=== PATIENT | female | born 2000 | race Caucasian/White ===

== ENCOUNTER 2020-11-11 08:51 | Outpatient (REF) | payer OTHER, SELFPAY ==
--- NOTE | 2020-11-11 08:57 | US_ITS ---
EXAMINATION: US ABDOMEN COMPLETE CLINICAL INFORMATION: Right upper quadrant pain. COMPARISON: CT abdomen and pelvis 09/03/2019. TECHNIQUE: Real-time imaging of the abdominal viscera. FINDINGS: PANCREAS: Visualized portions unremarkable. ABDOMINAL AORTA: Unremarkable. INFERIOR VENA CAVA: Unremarkable. LIVER: Unremarkable. GALLBLADDER: Mild sludge and possible tiny calculi are seen near the neck without surrounding abnormality. COMMON BILE DUCT: Normal in caliber measuring 0.3 cm in diameter. RIGHT KIDNEY: 10.8 cm. Unremarkable. LEFT KIDNEY: 10.1 cm. Unremarkable. SPLEEN: 8.4 cm. Unremarkable. FREE FLUID: None. US/US abdomen complete IMPRESSION: 1. Mild sludge/tiny calculi. The gallbladder neck without evidence for acute cholecystitis. No other significant abnormality.
== END 2020-11-11 08:52 | disposition home or self-care (01) ==
LOC: HO.HMGCX 08:51
PROVIDERS: Visit Provider Internal Medicine
DX: R10.11 Right upper quadrant pain (principal)
CPT/HCPCS: 76700

== ENCOUNTER → 2020-11-19 11:07 | Outpatient (BNVA) | payer OTHER, SELFPAY | PROVIDERS: PCP Nurse Practitioner Pediatrics; Visit Provider Surgery | DX: Z76.89 Persons encountering health services in other specified circumstances (principal) ==

== ENCOUNTER 2020-12-11 09:07 | Day surgery (SDC) | payer OTHER, SELFPAY ==
[2020-12-04 14:02] VITALS: BMI 23.8
--- NOTE | 2020-12-10 11:43 | HO.ANESPROP2 ---
Documented by User: Keeley Vazquez 12/10/20 11:45 HPI - Anesthesia Eval Consult details Narrative: 20yo F for Cholecystectomy Laparoscopic,poss open Recent rx for strep throat PMFSH Past Medical History Medical History (Updated 12/04/20 @ 13:58 by Nenita Cox) Family history of anesthesia complication Gallstones History of strep sore throat Family History Family History Family/Other History of ovarian cancer Surgical History Surgical History History of wisdom tooth extraction Social History Social History Are you a primary pediatric critical care nurse to a significant other at home: No Do you presently have visiting nurse or other home services: No Alcohol intake: current Smoking Status: Never smoker Have you been hit, kicked, punched, or otherwise hurt by someone within the past year? If so, by whom?: No Advance Directives: No Advance Directives Information Provided: No Advance Directives on File: No Recently lost weight without trying: No Meds Allergies Allergy/AdvReac Type Severity Reaction Status Date / Time No Known Allergies Allergy Verified 12/11/20 09:37 Home Medications Medication Instructions Recorded Confirmed Type desogestrel 0.15 mg-ethinyl 1 tab PO DAILY 11/19/20 12/04/20 History estradiol 0.03 mg tablet dicyclomine 10 mg capsule 10 mg PO TID PRN 11/19/20 12/04/20 History Exam Exam Date and Time: December 10, 2020 1143 Height,Weight and Vital Signs: Height 5 ft 2 in Weight 58.967 kg Assessment and Plan Assessment Anesthesia Assessment: Chart Reviewed Documented by User: Sarika Estrella 12/11/20 13:12 PMFSH Past Medical History Medical History (Updated 12/04/20 @ 13:58 by Nenita Cox) Family history of anesthesia complication Gallstones History of strep sore throat Family History Family History Family/Other History of ovarian cancer Family history of problems with anesthesia: No Surgical History Surgical History History of wisdom tooth extraction History of Problems with Anesthesia: No Social History Social History Are you a primary pediatric critical care nurse to a significant other at home: No Do you presently have visiting nurse or other home services: No Alcohol intake: current Smoking Status: Never smoker Have you been hit, kicked, punched, or otherwise hurt by someone within the past year? If so, by whom?: No Advance Directives: No Advance Directives Information Provided: No Advance Directives on File: No Recently lost weight without trying: No Meds Allergies Allergy/AdvReac Type Severity Reaction Status Date / Time No Known Allergies Allergy Verified 12/11/20 09:37 Home Medications Medication Instructions Recorded Confirmed Type desogestrel 0.15 mg-ethinyl 1 tab PO DAILY 11/19/20 12/04/20 History estradiol 0.03 mg tablet dicyclomine 10 mg capsule 10 mg PO TID PRN 11/19/20 12/04/20 History Exam Height,Weight and Vital Signs: Vital Signs Temp Pulse Resp BP Pulse Ox 12/11/20 09:35 98 F 81 18 91/43 L 98 Pertinent Lab Results Pertinent Lab Results: Lab Results 12/11/20 Range/Units 09:25 Urine Test NEGATIVE (NEGATIVE) Airway Mallampati Class: I TM Dist: >3cm Neck ROM: Full Loose/Missing/Broken Teeth: No Heart: RRR Lungs: CTAB Assessment and Plan Final Anesthetic Review NPO: Yes ASA Class: I Final Preanesthetic Review: No Changes in Pt Med Stat and Consent Obtained/Reviewed Patient Risk: Low Procedure Risk: Low Assessment/Block/Sedation in SS: Assess/Block/Sedation-SS Anesthetic Plan Anesthetic Plan: GA Disposition: Standard PACU
[2020-12-11] VITALS (17 sets, daily range): BP systolic 90–110; BP diastolic 43–69; PULSE 63–90; RESP 16–20; TEMP 36.3–36.6; O2SAT 89–100
[2020-12-11 09:32] LABS: UPreg QC Valid YES; Urine Pregnancy NEGATIVE (NEGATIVE)
[2020-12-11] MEDS: Lactated Ringers 1,000 ML 100 ML IVCONT (09:55)
[2020-12-11] MEDS: Acetaminophen 325 MG TABLET 650 MG PO (09:55)
--- NOTE | 2020-12-11 11:42 | MHC.SHP ---
Pre-Procedural Eval Section B Chief Complaint: gallstones Allergies: Allergies Allergy/AdvReac Type Severity Reaction Status Date / Time No Known Allergies Allergy Verified 12/11/20 09:37 Plan I have reviewed the history and physical and performed a pertinent physical examination on my patient. No changes have occurred unless specified.
--- NOTE | 2020-12-11 13:05 | W.PM.OPN ---
Operative Note Operative Note Date of Service: 12/11/20 Narrative: PROCEDURE: LAPAROSCOPIC CHOLECYSTECTOMY PREOP DIAGNOSIS: GALLSTONES POSTOP DIAGNOSIS: SAME SURGEON: Teodoro Musa M.D. COMMERCIAL ACCOUNT OFFICER: CHRISTOPHER Hunter The patient is a 20 year female with periodic right upper quadrant pain with an ultrasound showing gallstones. She was therefore referred to me by her manager spanish. I explained to her the option of proceeding with laparoscopic cholecystectomy. I discussed the technique of this procedure. I reviewed the risks including but not limited to bleeding, infections, injury to the bowel, liver, bile duct, conversion to open, as well as benefits alternatives and she had given consent. She was brought to the operating room and placed supine on the OR table under general seizure via endotracheal tube. The abdomen is prepped and draped in the usual sterile fashion. A surgical time-out was done. The patient received Cefotan 2 g IV preoperatively. I made a short incision on the infra umbilical margin using a blade 15 scheduled to the full-thickness of the skin and subcutaneous layer down to the fascia. The fascia was incised. The peritoneum was entered and through this incision a Jatinder port was introduced. Pneumoperitoneum was introduced to a pressure 15 mm mercury and from here on the rest of the procedure was done under vision with the 10 mm laparoscope. A 5/12 mm port was introduced via a small incision in the epigastric area below the subcostal margin. A 5 mm port introduced below the subcostal margin along the anterior axillary line and the midclavicular line. Graspers were placed through these working ports. The patient was placed in head-up and [id number] position. The gallbladder was immediately seen and this was noted to be supple and not inflamed. We were able to apply a grasper at this fundus and this was used to retract the gallbladder cephalad. Another grasper was used to retract the gallbladder laterally by applying this on the pouch of the gallbladder. At this point therefore the cystic duct was being put on stretch. The cystic duct was clearly seen. We gently dissected this using a [place] dissector to allow circumferential a dissection. By doing so I was able to achieve a critical view of the hepato- cystic triangle. I could see the cystic artery running alongside the cystic duct there were no other tubular structures other than this. Clips were applied on the cystic duct with 2 clips being applied distally. The cystic duct was transected between clips using Endo scissors. I applied clips on the cystic artery as well and this was transected between clips. With traction on the gallbladder away from the liver bed, I proceeded to divide across the hilum using the electrocautery spatula. We then incised the peritoneum of the gallbladder and created a plane of dissection between the gallbladder wall and the liver bed using a combination of blunt dissection with the tip of the spatula as well as electro cautery as well. We proceeded to separate the gallbladder from the hepatic bed with a combination of blunt dissection as well as electrocautery carefully peeling this all the way to the fundus until the entire gallbladder was completely from the liver bed the gallbladder was retrieved through an endobag through the umbilical incision. We reinserted all ports and insufflated. I examined the subhepatic space and there was no sign of any bleeding or any bile leak. I observed all 4 quadrants and there was no other pathology or bleeding or bowel injury. We irrigated a little bit because of some spillage of bile from a gallbladder tear. We then proceeded to desufflate the port sites and removed all ports under vision with the laparoscope. The umbilical port was removed last. The fascia of the umbilical incision was closed with a [id number] Dexon 0 stitch. Skin closure was achieved in all incisions using Dexon 4-0 subcuticular running sutures. Steri-Strips and dressings were applied. All incisions were infiltrated with Marcaine 0.5% for postop analgesia the procedure was completed The patient tolerated the procedure well. There were no complications noted. Initial and final count of sponges and instruments were correct. Estimated blood loss was about 5 cc. The patient was extubated without difficulty and transferred to the recovery room with stable vital signs.
--- NOTE | 2020-12-11 13:08 | P.BOP_ITS ---
Brief Operative Note Date of Service: 12/11/20 Pre-op diagnosis: gallstones Post-op diagnosis: same Procedure: laparoscopic cholecystectomy Implants: None Surgeon: WILTON LOO MD Anesthesia: ARABELLA Bowling Ball Marker: Kacy Hunter Estimated blood loss (mL): 5 Pathology: other (gallbladder) Condition: stable Disposition: PACU
[2020-12-11] MEDS: fentaNYL citrate/PF 100 MCG/2 ML VIAL 25 MCG IVPUSH ×4 (13:28→13:46)
[2020-12-11] MEDS: Ketorolac Tromethamine 15 MG/ML VIAL IVPUSH (13:31)
[2020-12-11] MEDS: HYDROmorphone HCl 0.5 MG/0.5 ML SYRINGE 0.25 MG IVPUSH ×2 (14:03→14:23)
== END 2020-12-11 15:49 | disposition home or self-care (01) ==
PROVIDERS: Nurse Practitioner; Visit Provider Surgery
PROC: 0FT44ZZ Resection of Gallbladder, Percutaneous Endoscopic Approach (ICD-10-PCS; CPT 47562; principal; 2020-12-11 12:10)
DX: K80.10 Calculus of gallbladder with chronic cholecystitis without obstruction (principal)
CPT/HCPCS: 47562; 81025; 88304; J1100; J1170; J1885; J2250; J2405; J3010

== ENCOUNTER → 2020-12-24 14:26 | Outpatient (BNVA) | payer OTHER, SELFPAY | PROVIDERS: Visit Provider Surgery ==

== ENCOUNTER 2021-05-24 08:48 | Emergency (ER) | payer OTHER, SELFPAY ==
--- NOTE | ~2021-05-24 | CT_ITS ---
EXAMINATION: CT ABDOMEN AND PELVIS WITH CONTRAST CLINICAL INFORMATION: Abdominal pain. Rule out perforated viscus. COMPARISON: Previous abdominal ultrasound October [address] of the abdomen and pelvis August 2019 TECHNIQUE: Multidetector volumetric images were obtained from the superior aspect of the liver through the pubic symphysis following administration 85 mL of Omnipaque 350 intravenous contrast. Sagittal and coronal reformatted images were obtained on the technologist's workstation. Oral contrast: Yes This CT examination was performed using dose optimization techniques as appropriate, variously including the following: *Automated exposure control *Adjustment of mA and/or kV according to patient size (this includes techniques or standardized protocols for targeted exams where dose is matched to indication/reason for exam; i.e. extremities or head) *Use of iterative reconstruction technique DLP: 373 mGy-cm FINDINGS: LUNG BASES: The visualized lung bases are unremarkable. LIVER, GALLBLADDER, AND BILIARY TREE: The liver is normal in size, shape, and attenuation. No focal hepatic lesion or biliary ductal dilatation is present. The gallbladder has been removed. PANCREAS: Unremarkable. SPLEEN: Unremarkable. ADRENAL GLANDS: Unremarkable. KIDNEYS AND URETERS: The kidneys are normal in size, shape, and attenuation. No hydronephrosis, hydroureter, or calculi seen. No perinephric stranding. BLADDER: Unremarkable. GASTROINTESTINAL TRACT: The small and large bowel are unremarkable. The appendix is unremarkable. The stomach is unremarkable. No free air is seen. ABDOMINAL WALL: No significant hernia is appreciated. LYMPH NODES: Normal. VASCULAR: Unremarkable. PELVIC VISCERA: There right ovary is prominent. There is question of a complex right ovarian cyst, possibly with fat and small calcification or a dermoid cyst, for example axial image 62 series 2.. This could be better assessed with ultrasound or MRI. There is trace ascites in the pelvis. Uterus and adnexa are otherwise unremarkable. OSSEOUS STRUCTURES: There is sacralization of the left L5 transverse CT/CT abdomen pelvis w con process. Bony structures are otherwise unremarkable. IMPRESSION: Prominent right ovary and probable complex right ovarian cyst. The pattern evaluated with ultrasound or MRI. Trace fluid in the pelvis.
--- NOTE | ~2021-05-24 | US_ITS ---
EXAMINATION: US ABDOMEN LIMITED CLINICAL INFORMATION: Abdominal pain COMPARISON: CT of the abdomen and pelvis from earlier the same day and pelvic ultrasound August 2019 TECHNIQUE: Real-time imaging of the right upper quadrant abdominal viscera. FINDINGS: PANCREAS: Normal. LIVER: Normal. The liver is normal in size. The liver contour is normal. Parenchymal echogenicity is normal. No focal hepatic lesion. There is no intrahepatic biliary duct dilatation seen. GALLBLADDER: Normal. The gallbladder is physiologically distended without evidence of stones, sludge, polyps, wall thickening or pericholecystic fluid. COMMON BILE DUCT: Normal in caliber measuring 0.2 cm in diameter. RIGHT KIDNEY: Normal. No hydronephrosis. No renal calculi or focal parenchymal lesions. The kidney measures 10 cm in maximum dimension. FREE FLUID: None. US/US pelvic and transvaginal IMPRESSION: Normal right upper quadrant ultrasound. EXAMINATION: Pelvic ultrasound CLINICAL INFORMATION: Right-sided abdominal pain. Ovarian cyst seen on CT scan. COMPARISON: Previous CT scan of the abdomen and pelvis from earlier the same day and pelvic ultrasound August 2019 TECHNIQUE: Transabdominal and transvaginal pelvic ultrasound was performed. Transvaginal exam was performed for better visualization of the uterus and ovaries. Doppler color and grayscale evaluation of the right ovarian vessels was performed. The left ovary was not seen. FINDINGS: The uterus is retroverted and measures 6.5 x 3.5 x 3.6 cm in dimension. No focal uterine lesion is seen. Endometrial thickness is normal measuring 0.6 cm. The right ovary is slightly enlarged measuring 4.8 x 2.7 x 2.7 cm. There is a 2.1 x 1.6 x 1.7 cm simple right ovarian cyst. There is an adjacent complex cyst with thickened echogenic wall, echogenic solid component and dirty acoustic shadowing questionable for a dermoid. This measures 2.1 x 1.9 x 1.7 cm. Arterial and venous flow is documented to the right ovary. There is no evidence of right ovarian torsion. The left ovary is not seen. There is no fluid in the pelvis. IMPRESSION: Enlarged right ovary with 2 adjacent cysts, one simple-appearing cyst and one complex cyst questionable for a dermoid. No evidence of right ovarian torsion. Small amount of fluid in the pelvis. Left ovary not seen.
[2021-05-24 08:50] VITALS: BP 113/68; PULSE 89; RESP 17; TEMP 36.1; O2SAT 97; BMI 24.9
--- NOTE | 2021-05-24 09:09 | ED.ABDPAIN ---
HPI - Abdominal Pain General Chief Complaint: Abdominal Pain Stated Complaint: abd pain Time Seen by Provider: 05/24/21 09:08 Source: patient and family (Mother) Mode of arrival: ambulatory Limitations: no limitations History of Present Illness HPI narrative: 20-year-old female came in for evaluation of abdominal pain. Patient describes the pain as dull aching pain, pain started 2 days ago, constant, progressively getting worse, affecting the whole abdomen, pain is associated with nausea, decline vomiting or diarrhea, no fever or chills. Patient had a history of cholecystectomy, normal bowel movement and passing flatus. No relieving or aggravating factors. No urinary frequency units dysuria. No vaginal bleed or discharge. Related Data Home Medications Medication Instructions Recorded Confirmed desogestrel 0.15 mg-ethinyl 1 tab PO DAILY 11/19/20 12/04/20 estradiol 0.03 mg tablet dicyclomine 10 mg capsule 10 mg PO TID PRN 11/19/20 12/04/20 Previous Rx's Medication Instructions Recorded ibuprofen 600 mg PO Q6H PRN #30 tab 12/11/20 oxycodone-acetaminophen [Percocet] 1 - 2 tab PO Q4-6H PRN #30 tab 12/11/20 Allergies Allergy/AdvReac Type Severity Reaction Status Date / Time No Known Allergies Allergy Verified 12/24/20 14:54 Review of Systems Review of Systems All other systems are reviewed and are negative Constitutional: Reports as per HPI and Reports no additional constitutional complaints Eyes: Reports as per HPI and Reports no additional eye complaints Reports system reviewed and no additional complaints, except as documented Cardiovascular: Reports as per HPI and Reports no additional cardiovascular complaints Respiratory: Reports as per HPI and Reports no additional respiratory complaints Gastrointestinal: Reports as per HPI and Reports no additional gastrointestinal complaints Genitourinary: Reports no additional female genitourinary complaints Musculoskeletal: Reports no additional musculoskeletal complaints Skin/Breast: Reports system reviewed and no additional complaints, except as docu Psychiatric: Reports no additional psychiatric complaints Endocrine: Reports no additional endocrine complaints Hematologic/Lymphatic: Reports no additional hematologic/lymphatic complaints Allergic/Immunologic: Reports no additional allergic/immunologic complaints Reports system reviewed and no additional complaints, except as documented and Reports Abnormal speech present Physical Exam Vital Signs: Vital Signs: Last Vital Signs Temp 96.9 F 05/24/21 08:50 Pulse 75 07/12/21 11:16 Resp 18 05/24/21 11:16 BP 97/56 L 05/24/21 11:16 Pulse Ox 99 05/24/21 11:16 Body Mass Index 24.9 Vital signs have been reviewed as appeared to be correct. Blood pressure normal. Heart rate normal. Respiration rate normal. Temperature normal. Oxygen saturation normal. Appearance: Alert. Oriented X3. No acute distress. Head: Normal external exam. Normocephalic. Atraumatic. No Sánchez signs noted. No raccoon eyes noted Eyes: PERRLA. EOMI. Conjunctiva and sclera normal. Eyelids normal. ENT: TM's Normal. Pharynx normal. Uvula midline. Moist mucous membranes. No trismus noted. No drooling noted. No muffled voice noted. Neck: Normal inspection. Neck supple. FROM. No adenopathy. Thyroid Normal. No meningeal signs. No neck mass noted. CVS: Normal heart rate and rhythm. Heart sound normal. No murmurs noted. Pulses normal throughout. Respiratory: No respiratory distress. Painless inspiration. Breath sounds normal. No wheezes/rales/rhonchi noted. Chest nontender. No accessory muscle usage noted or decreased air movement noted. Abdomen: Soft, lower abdominal tenderness, mild rebound tenderness, no guarding.. Bowel sounds normal in all 4 quadrants. No distention noted. No organomegaly noted. No visible injury noted. Back: No CVA tenderness. Full range of motion noted. Skin: Skin warm and dry. Normal skin color. Normal skin turgor. No rashes/lesions/lacerations noted. Extremities: No lower extremity edema. Extremities exhibit normal range of motion. Extremities nontender. Neuro: Oriented X 3. No motor deficit. No sensory deficit. Reflexes normal. Course Course Course Narrative: Assessment and plan. 20-year-old female came in with 7 days of abdominal pain. 1. Elevated LFTs patient had liver ultrasound which was unremarkable. 2. To ovarian right ovarian cysts patient was instructed to follow-up with her OBGYN to consider hormonal therapy. MDM - Abdominal Pain Lab Data Attestation: I reviewed the patient's lab results. Result diagrams: 05/24/21 09:49 05/24/21 09:49 Labs: Lab Results 05/24/21 05/24/21 05/24/21 Range/Units 09:08 09:08 09:49 WBC 5.4 (4.8-10.8) X10*3/uL RBC 4.46 (4.20-5.50) X10*6/uL Hgb 13.2 (12.0-16.0) g/dl Hct 39.6 (37-47) % MCV 88.8 (80-98) fL MCH 29.6 (27.0-33.0) pg MCHC 33.3 (31.0-35.0) g/dl RDW 12.8 (11.0-16.0) % Plt Count 207 (160-400) X10*3/uL MPV 9.8 (9.4-12.3) fL Immature Gran % (Auto) 0.2 (0.0-0.4) % Neut % (Auto) 53.0 (45-73) % Lymph % (Auto) 29.1 (20-40) % [place] % (Auto) 15.1 H (2-11) % Eos % (Auto) 2.4 (0-4) % Baso % (Auto) 0.2 (0-2) % Lymph # (Auto) 1.6 (1.2-4.9) X10*3/uL [place] # (Auto) 0.8 (0.1-1.2) X10*3/uL Eos # (Auto) 0.1 (0.0-0.4) X10*3/uL Baso # (Auto) 0.0 (0.0-0.2) X10*3/uL Abs Immat Gran (auto) 0.01 (0.00-0.03) X10*3/uL Absolute Neuts (auto) 2.8 (2.0-8.3) X10*3/uL Absolute Nucleated RBC 0.000 (0.0-0.012) X10*3/uL Nucleated RBC % (auto) 0.0 (0.0-0.2) /100WBC Sodium (135-145) mmol/L Potassium (3.3-5.1) mmol/L Chloride (96-108) mmol/L Carbon Dioxide (22-29) mmol/L Anion Gap (12-20) BUN (9-16) mg/dL Creatinine (0.5-1.4) mg/dL Estim Creat Clear Calc Estimated GFR Random Glucose (60-115) mg/dL Calcium (8.4-10.2) mg/dL Total Bilirubin (0.0-1.0) mg/dL Direct Bilirubin (0.0-0.5) mg/dL AST (5-31) U/L ALT (0-31) U/L Alkaline Phosphatase (39-117) U/L Total Protein (6.5-8.0) g/dL Albumin (3.5-5.0) g/dL Lipase (8-78) U/L Urine Color YELLOW Urine Appearance CLEAR Urine pH 6.0 (5.0-8.0) Ur Specific [place] <= 1.005 (1.005-1.025) Urine Protein NEG (NEG-TRACE) MG/DL Urine Glucose (UA) NEG (NEG) MG/DL Urine Ketones NEG (NEG) MG/DL Urine Blood NEG (NEG) Urine Nitrite NEG (NEG) Ur Leukocyte Esterase NEG (NEG) Urine RBC 0 (0) /HPF Urine WBC 0-2 (0-4) /HPF Ur Squamous Epith Cells 2+ /LPF Urine Bacteria TRACE /LPF Urine Test NEGATIVE (NEGATIVE) 05/24/21 Range/Units 09:49 WBC (4.8-10.8) X10*3/uL RBC (4.20-5.50) X10*6/uL Hgb (12.0-16.0) g/dl Hct (37-47) % MCV (80-98) fL MCH (27.0-33.0) pg MCHC (31.0-35.0) g/dl RDW (11.0-16.0) % Plt Count (160-400) X10*3/uL MPV (9.4-12.3) fL Immature Gran % (Auto) (0.0-0.4) % Neut % (Auto) (45-73) % Lymph % (Auto) (20-40) % [place] % (Auto) (2-11) % Eos % (Auto) (0-4) % Baso % (Auto) (0-2) % Lymph # (Auto) (1.2-4.9) X10*3/uL [place] # (Auto) (0.1-1.2) X10*3/uL Eos # (Auto) (0.0-0.4) X10*3/uL Baso # (Auto) (0.0-0.2) X10*3/uL Abs Immat Gran (auto) (0.00-0.03) X10*3/uL Absolute Neuts (auto) (2.0-8.3) X10*3/uL Absolute Nucleated RBC (0.0-0.012) X10*3/uL Nucleated RBC % (auto) (0.0-0.2) /100WBC Sodium 139 (135-145) mmol/L Potassium 4.1 (3.3-5.1) mmol/L Chloride 109 H (96-108) mmol/L Carbon Dioxide 21 L (22-29) mmol/L Anion Gap 13 (12-20) BUN 6 L (9-16) mg/dL Creatinine 0.65 (0.5-1.4) mg/dL Estim Creat Clear Calc 113.7 Estimated GFR > 60 Random Glucose 87 (60-115) mg/dL Calcium 9.1 (8.4-10.2) mg/dL Total Bilirubin 0.4 (0.0-1.0) mg/dL Direct Bilirubin < 0.2 (0.0-0.5) mg/dL AST 46 H (5-31) U/L ALT 66 H (0-31) U/L Alkaline Phosphatase 104 (39-117) U/L Total Protein 6.7 (6.5-8.0) g/dL Albumin 3.8 (3.5-5.0) g/dL Lipase 21 (8-78) U/L Urine Color Urine Appearance Urine pH (5.0-8.0) Ur Specific [place] (1.005-1.025) Urine Protein (NEG-TRACE) MG/DL Urine Glucose (UA) (NEG) MG/DL Urine Ketones (NEG) MG/DL Urine Blood (NEG) Urine Nitrite (NEG) Ur Leukocyte Esterase (NEG) Urine RBC (0) /HPF Urine WBC (0-4) /HPF Ur Squamous Epith Cells /LPF Urine Bacteria /LPF Urine Test (NEGATIVE) Imaging Data Pelvic ultrasound.: Radiologist's impression: Enlarged right ovary with 2 adjacent cysts, one simple-appearing cyst and one complex cyst questionable for a dermoid. No evidence of right ovarian torsion. Small amount of fluid in the pelvis. Left ovary not seen. CT scan - abdomen: Radiologist's impression: Prominent right ovary and probable complex right ovarian cyst. The pattern evaluated with ultrasound or MRI. Trace fluid in the pelvis. Discharge Plan Discharge Clinical Impression: Elevated liver enzymes Abdominal pain Qualifiers: Abdominal location: unspecified location Qualified Code(s): R10.9 - Unspecified abdominal pain Ovarian cyst Qualifiers: Laterality: right Qualified Code(s): N83.201 - Unspecified ovarian cyst, right side Patient Disposition: Home, Self-Care Instructions: Ovarian Cyst (ED) Additional Instructions: Follow-up with your OBGYN/and your PCP. Prescriptions: No Action oxycodone-acetaminophen [Percocet] 5-325 mg tablet 1 - 2 tab PO Q4-6H PRN (Reason: pain) Qty: 30 RF: 0 ibuprofen 600 mg tablet 600 mg PO Q6H PRN (Reason: pain) Qty: 30 RF: 0 dicyclomine 10 mg capsule 10 mg PO TID PRN (Reason: Muscle Spasm) RF: 0 desogestrel-ethinyl estradiol 0.15-0.03 mg tablet 1 tab PO DAILY RF: 0 PMFSH Past Medical History Medical History Family history of anesthesia complication Gallstones History of strep sore throat Surgical History History of wisdom tooth extraction Family History Family History Family/Other History of ovarian cancer Social History Social History Are you a primary pet care associate to a significant other at home: No Do you presently have visiting nurse or other home services: No Alcohol intake: current Alcohol intake frequency: a few times a month Patient Tobacco Use Status: Never used Tobacco Use of substances other than those prescribed or required for medical reasons: No Advance Directives: No Advance Directives Information Provided: No Patient : No
[2021-05-24 09:24] LABS: Glucose Urine UA NEG (NEG); Leukocyte Esterase Urine NEG (NEG); Nitrite Urine NEG (NEG); Specific Gravity - Urine <= 1.005 (1.005-1.025); Urine Blood NEG (NEG); Urine Ketones NEG (NEG); Urine Protein NEG (NEG-TRACE)
[2021-05-24 09:25] LABS: Appearance Urine CLEAR; Color Urine YELLOW
[2021-05-24 09:30] LABS: UPreg QC Valid YES; Urine Pregnancy NEGATIVE (NEGATIVE)
[2021-05-24 09:34] LABS: Bacteria Urine TRACE /LPF; RBC Urine 0 /HPF (0); Squamous Epithelial Cell Urine 2+ /LPF; WBC Urine 0-2 /HPF (0-4)
[2021-05-24] MEDS: 0.9 % Sodium Chloride 1,000 ML 999 ML IVCONT (09:50)
[2021-05-24 09:55] LABS: MANUAL DIFF FLAG NO
[2021-05-24 10:06] LABS: Basophils Percent Auto 0.2 % (0-2); Eosinophils Absolute Auto 0.1 X10*3/uL (0.0-0.4); Eosinophils Percent Auto 2.4 % (0-4); Hematocrit 39.6 % (37-47); Hemoglobin 13.2 g/dl (12.0-16.0); Imm Gran Abs Auto 0.01 X10*3/uL (0.00-0.03); Imm Gran Pct Auto 0.2 % (0.0-0.4); Lymphocytes Absolute Auto 1.6 X10*3/uL (1.2-4.9); Lymphocytes Percent Auto 29.1 % (20-40); Mean Corpuscular HGB Conc 33.3 g/dl (31.0-35.0); Mean Corpuscular Hemoglobin 29.6 pg (27.0-33.0); Mean Corpuscular Volume 88.8 fL (80-98); Mean Platelet Volume 9.8 fL (9.4-12.3); Monocytes Absolute Auto 0.8 X10*3/uL (0.1-1.2); Monocytes Percent Auto 15.1 % (2-11); Neutrophils Absolute Auto 2.8 X10*3/uL (2.0-8.3); Platelet Count 207 X10*3/uL (160-400); Red Blood Count 4.46 X10*6/uL (4.20-5.50); Red Cell Distribution Width 12.8 % (11.0-16.0); White Blood Count 5.4 X10*3/uL (4.8-10.8)
[2021-05-24 10:27] LABS: Alanine Aminotransferase 66 U/L (0-31); Albumin Level 3.8 g/dL (3.5-5.0); Alkaline Phosphatase 104 U/L (39-117); Anion Gap 13 (12-20); Aspartate Amino Transferase 46 U/L (5-31); Bilirubin Direct < 0.2 mg/dL (0.0-0.5); Bilirubin Total 0.4 mg/dL (0.0-1.0); Blood Urea Nitrogen 6 mg/dL (9-16); Calcium 9.1 mg/dL (8.4-10.2); Carbon Dioxide 21 mmol/L (22-29); Chloride 109 mmol/L (96-108); Creatinine Clr Calc Pharmacy 113.7; Estimated Glomerular Filt Rate > 60; Glucose Random 87 mg/dL (60-115); Lipase 21 U/L (8-78); Potassium 4.1 mmol/L (3.3-5.1); Sodium 139 mmol/L (135-145); Total Protein 6.7 g/dL (6.5-8.0)
--- NOTE | 2021-05-24 10:43 | PC.NURSE ---
Pt in NAD. Brought to CT.
[2021-05-24] MEDS: iohexoL 350 MG/ML 100 ML INFUS..BTL 85 ML IV (11:00)
[2021-05-24 11:16] VITALS: BP 97/56; PULSE 75; RESP 18; O2SAT 99
== END 2021-05-24 14:14 | disposition home or self-care (01) ==
PROVIDERS: Emergency Provider Emergency Medicine; PCP Nurse Practitioner Adult Health
DX: R10.9 Unspecified abdominal pain (principal); N83.201 Unspecified ovarian cyst, right side; R74.8 Abnormal levels of other serum enzymes
CPT/HCPCS: 36415; 74177; 76705; 76830; 76856; 80048; 80076; 81001; 81025; 83690; 85025; 93975; 96360; 99284; Q9967